=== PATIENT | female | born 1965 | race Caucasian/White ===

== ENCOUNTER 2024-09-03 05:48 | Observation (INO) ==
--- NOTE | 2024-08-23 10:42 | Anesthesiology Consultation ---
Date of Service August 23, 2024 Assessment & Plan (1) Encounter for pre-operative examination: - check BSG am DOS. - dulaglutide instructions: Patient informed by PAT RN to stop 7 days prior to surgery. - Per director global market research on 08/23/24: No known infectious disease contacts, current infectious disease symptoms in past 10 days or COVID positive test result in the past 30 days. Chart Review Chart Review: Acceptable Risk for Surgery and Patient NOT seen in Pre Admission Testing History Surgery Operation Date: 09/03/24 07:30 Proposed Procedures p Bilateral Breast Reduction - Kacie Gore MD Height/Weight Height: 5 ft Weight: 62.142 kg Allergies Allergy/AdvReac Type Severity Reaction Status Date / Time imipramine Allergy Mild HYPOTENSION, Verified 08/23/24 10:04 NAUSEA Sulfa (Sulfonamide Allergy Unknown HIVES Verified 08/23/24 10:04 Antibiotics) Medications Home Medications Medication Instructions Recorded Confirmed Last Taken empagliflozin 25 mg tablet 25 mg PO QPM 10/13/23 08/23/24 Unknown (Jardiance) glimepiride 4 mg tablet 4 mg PO QAM 10/13/23 08/23/24 Unknown olmesartan 20 mg tablet (Benicar) 20 mg PO DAILY 10/13/23 08/23/24 Unknown rosuvastatin 40 mg tablet (Crestor) 40 mg PO HS 10/13/23 08/23/24 Unknown vilazodone 40 mg tablet (Viibryd) 40 mg PO HS 10/13/23 08/23/24 Unknown dulaglutide 1.5 mg/0.5 mL 0.75 mg subcut Q7D 08/14/24 08/23/24 Unknown subcutaneous pen injector (Trulicity) lansoprazole 30 mg capsule,delayed 30 mg PO QAM 08/14/24 08/23/24 Unknown release (Prevacid) bupropion HCl 150 mg 24 hr tablet, 150 mg PO QPM 08/23/24 08/23/24 Unknown extended release bupropion HCl 300 mg 24 hr tablet, 300 mg PO QPM 08/23/24 08/23/24 Unknown extended release lamotrigine 100 mg tablet 50 - 200 mg PO UD mood swings 08/23/24 08/23/24 Unknown (Lamictal) Past Medical History Medical History (Updated 08/23/24 @ 10:39 by Adela Flower PA-C) Depression with anxiety Diabetes mellitus, type 2 History of hypertension Hx of gastroesophageal reflux (GERD) Hx of hyperlipidemia Hx of sleep apnea unable to tolerate device Nausea and vomiting after administration of anesthetic agent only in 1975 with jaw sx, nothing since Past Family History Family History Other COPD (chronic obstructive pulmonary disease) Diabetes Lymphoma Rheumatoid arthritis Past Surgical History Surgical History History of section 1999 History of esophagogastroduodenoscopy (EGD) History of mandibular surgery 1976 History of rotator cuff surgery 2016, left Hx of colonoscopy Social History Smoking Status: Never smoker Do You Dip or Chew Tobacco: No Hx Alcohol Use: No Hx Substance Use: No substance use type: does not use Lab Results Anesthesia Preop Results Results Anesthesia Widget: WBC 8.63 K/ul (4.8-10.8) 08/14/24 Hgb 11.9 g/dl (12.0-16.0) L 08/14/24 Hct 36.9 % (37.0-47.0) L 08/14/24 Plt 228 K/uL (130-400) 08/14/24 Na 137 mmol/L (136-145) 08/14/24 K 4.5 mmol/L (3.5-5.1) 08/14/24 Cl 104 mmol/L (98-107) 08/14/24 CO2 27 mmol/L (21-32) 08/14/24 BUN 12 mg/dl (6-23) 08/14/24 Creat 0.96 mg/dl (0.6-1.2) 08/14/24 Glucose Level 98 mg/dl (70-99(Fasting)) 08/14/24 PT 10.6 Seconds (9.0-12.0) 08/14/24 INR 1.0 (0.9-1.1) 08/14/24 HA1c 6.4 % (4.5-5.6) H 08/14/24 Testing Electrocardiogram Date: 08/14/24 NSR, rate 77 bpm Stress Test Date: 05/19/22 MPHR 85% Exercise echocardiographic is normal without resting LV wall motion abnormalities or inducible ischemia METS 6.4 EF 65-69% Mild aortic valve sclerosis is present without stenosis Grade I diastolic dysfunction
[2024-09-03] MEDS: LACTATED RINGER'S 1,000 ML IV SCH (06:24)
--- NOTE | 2024-09-03 06:51 | History & Physical Bridge Note ---
Date of Service September 03, 2024 History & Physical Bridge Note I have examined the patient, reviewed the History & Physical and in the interval since the performance of the History & Physical I have noted the following changes of clinical significance: no changes noted
[2024-09-03] MEDS: DEXTROSE 50% 50 ML SYRINGE IV ONE ×2 (07:05→12:35)
[2024-09-03] MEDS ORDERED: fentaNYL citrate PF 100 MCG/2 ML VIAL ONE (07:06)
[2024-09-03] MEDS ORDERED: MIDAZOLAM HCL 1 MG/ML 2ML VIAL ONE (07:06)
[2024-09-03] MEDS ORDERED: LIDOCAINE 2% 2 ML VIAL/AMP(20MG/ML) INFIL ONE (07:13)
[2024-09-03] MEDS ORDERED: ONDANSETRON INJ 2 MG/ML 2 ML VIAL ONE (07:13)
[2024-09-03] MEDS ORDERED: PROPOFOL IV EMULSION 10 MG/ML 20 ML VIAL IV ONE ×2 (07:13→09:15)
[2024-09-03] MEDS ORDERED: ROCURONIUM BROMIDE 10 MG/ML 5 ML VIAL IV ONE ×2 (07:17→08:53)
[2024-09-03] MEDS ORDERED: REMIFENTANIL HCL 1 MG VIAL IV ONE (07:24)
[2024-09-03] MEDS: ceFAZolin 2000MG 2,000 MG/15 ML SYR IV SCH ×2 (07:30→16:53)
[2024-09-03] MEDS ORDERED: PHENYLEPHRINE 100MCG/ML 5ML SYR ONE (07:41)
[2024-09-03] MEDS ORDERED: PHENYLEPHRINE HCL 10 MG/ML VIAL ONE (07:50)
[2024-09-03] MEDS ORDERED: ATROPINE SULFATE 0.1 MG/ML 10ML SYR IV PRN (07:52)
[2024-09-03] MEDS ORDERED: ePHEDrine sulfate 50 MG/ML AMP IV PRN (07:52)
[2024-09-03] MEDS ORDERED: DEXAMETHASONE SOD INJ 4 MG/ML VIAL IV PRN (07:52)
[2024-09-03] MEDS ORDERED: NALOXONE HCL 0.4 MG/1 ML VIAL/CARP IV PRN (07:52)
[2024-09-03] MEDS ORDERED: fentaNYL citrate PF 100 MCG/2 ML VIAL IV PRN (07:52)
[2024-09-03] MEDS ORDERED: LABETALOL HCL IV 5 MG/ML 20ML IV PRN (07:52)
[2024-09-03] MEDS ORDERED: ONDANSETRON INJ 2 MG/ML 2 ML VIAL IV PRN (07:52)
[2024-09-03] MEDS ORDERED: HYDROmorphone INJ 2 MG/ML SYR/VIAL IV PRN (07:52)
[2024-09-03] MEDS ORDERED: ePHEDrine sulfate 50 MG/5 ML SYR ONE (08:53)
[2024-09-03] MEDS: BUPIVACAINE 0.25% PF 30 ML VIAL ONE (10:23)
[2024-09-03] MEDS: LIDOCAINE 1%/EPINEPHRINE 1:100,000 50 ML VIAL ONE (10:23)
[2024-09-03] MEDS ORDERED: ceFAZolin 330 MG/ML 1 GM VIAL ONE (10:33)
[2024-09-03] MEDS ORDERED: diphenhydrAMINE 50 MG/ML VIAL ONE (10:37)
[2024-09-03] MEDS ORDERED: HYDROmorphone INJ 2 MG/ML SYR/VIAL ONE (10:42)
--- NOTE | 2024-09-03 10:47 | Post Operative Brief Note ---
PG Immediate Post Op with CF Date of Surgery September 03, 2024 Pre & Post Diagnosis Operation Date: 09/03/24 07:30 Pre-Op Diagnosis: Symptomatic Macromastia Post-Op Diagnosis: Symptomatic Macromastia I identified the patient and participated in the time-out.: Yes Procedure Operation Date: 09/03/24 07:30 Actual Procedures p Bilateral Breast Reduction(Bilateral) - Kacie Gore MD Surgeon Kacie Gore MD Binder Cutter Hand Marifer العلي MD PGY-4 Estimated Blood Loss 25 Findings Consistent with Post-Op Diagnosis Specimens Specimen Description: A. Left Breast- 846 grams B. Right Breast- 852 grams Drains Gabe-Duque Drain (b/l breasts)
[2024-09-03] MEDS ORDERED: GLYCOPYRROLATE 0.2 MG/ML VIAL ONE (10:49)
[2024-09-03] MEDS ORDERED: NEOSTIGMINE METHYLSULFATE 1 MG/ML 10ML VIAL ONE (10:49)
[2024-09-03] MEDS ORDERED: PHARMACY GLYCEMIC MGMT CONSULT PRN (11:26)
[2024-09-03] MEDS ORDERED: CARBOHYDRATES FOR HYPOGLYCEMIA PO PRN (12:00)
[2024-09-03] MEDS ORDERED: DEXTROSE 50% 50 ML SYRINGE IV PRN (12:00)
[2024-09-03] MEDS ORDERED: GLUCOSE 40% GEL 15 GM TUBE PO PRN (12:00)
[2024-09-03] MEDS ORDERED: GLUCAGON FOR INJ 1 MG VIAL SQ PRN (12:00)
[2024-09-03] MEDS ORDERED: GLUCOSE 10 TAB/TUBE PO PRN (12:00)
--- NOTE | 2024-09-03 12:06 | Anesthesiology Progress Note ---
Date of Service September 03, 2024 Anesthesia Post Procedure Vital Signs Vital Signs: Temp Pulse Resp BP BP Pulse Ox O2 Del Method 09/03/24 12:00 36.4 C L 91 H 15 148/77 H 98 Room Air 09/03/24 11:50 92 H 16 119/82 99 Room Air 09/03/24 11:40 94 H 14 133/78 100 Oxymask 09/03/24 11:30 96 H 18 144/104 H 100 Oxymask 09/03/24 11:20 98 H 12 165/89 H 100 Oxymask 09/03/24 11:17 36.3 C L 98 H 16 148/88 H 100 Oxymask 09/03/24 06:12 36.8 C 92 H 20 127/88 96 Room Air O2 Flow Rate 09/03/24 12:00 09/03/24 11:50 09/03/24 11:40 3 09/03/24 11:30 6 09/03/24 11:20 6 09/03/24 11:17 6 09/03/24 06:12 Transfer of Care Handoff Completed per policy Notes Mental Status: alert / awake / arousable and participated in evaluation Patient Amnestic to Procedure: Yes Nausea / Vomiting: adequately controlled Pain: adequately controlled Airway Patency, RR, SpO2: stable & adequate BP & HR: stable & adequate Hydration State: stable & adequate Anesthetic Complications: no major complications apparent and Pt Satisfied with anesthetic care
[2024-09-03] MEDS ORDERED: diphenhydrAMINE 50 MG/ML VIAL IV PRN (12:31)
[2024-09-03] MEDS ORDERED: diphenhydrAMINE Capsule 25 MG CAP PO PRN (12:31)
[2024-09-03] MEDS ORDERED: oxyCODONE/ACETAMINOPHEN 5mg/325mg TAB PO PRN ×2 (12:31)
[2024-09-03] MEDS ORDERED: PROMETHAZINE 12.5 MG/50.5 ML BAG IV PRN (12:31)
[2024-09-03] MEDS: INSULIN ASPART PER UNIT CHARGE SC SCH (13:03)
--- NOTE | 2024-09-03 13:17 | Pharmacy Report ---
Pharmacy Glycemic Short Note 2 - Date of Service September 03, 2024 - Glycemic Short BSG Results (Last 24 hours): 09/03/24 09/03/24 09/03/24 06:10 07:21 08:25 POC Glucose 86 179 H 113 H 09/03/24 09/03/24 09/03/24 09:25 10:25 11:19 POC Glucose 114 H 143 H 108 H 09/03/24 12:34 POC Glucose 89 OUTPATIENT ANTIDIABETIC REGIMEN: * Empagliflozin 25 mg PO daily * Glimepiride 4 mg PO qAM * Dulaglutide 0.75 mg SC weekly HbA1c: 6.4% (08/14/24) ASSESSMENT: * Shelly is a 59 year old female POD #0 s/p bilateral breast reduction * Blood sugars have been well-controlled perioperatively * No steroids administered during surgery or ordered postoperatively * D5-1/2 NSS @75 ml/hr infusing at this time PLAN FOR INPATIENT GLYCEMIC CONTROL: * Hold outpatient oral diabetes medications * Basal insulin * hold * Bolus insulin * NovoLog per scale ACHS or Q6hrs while NPO * Goal Range: Low 110 mg/dL - High 140 mg/dL * Correction Factor: 40 mg/dL/unit * Nutritional / Prandial insulin per carb ratio of 1 unit per 13 grams CHO consumed
[2024-09-03] MEDS: D5W AND 1/2NSS + 20MEQ KCL 20 MEQ/1,000 ML BAG IV SCH (13:51)
--- NOTE | 2024-09-03 14:52 | Operative Report ---
PG Post Operative Report Pre & Post Diagnosis Operation Date: 09/03/24 07:30 Pre-Op Diagnosis: Symptomatic Macromastia Post-Op Diagnosis: Symptomatic Macromastia I identified the patient and participated in the time-out.: Yes Procedure Operation Date: 09/03/24 07:30 Actual Procedures p Bilateral Breast Reduction(Bilateral) - Kacie Gore MD Surgeon Kacie Gore MD Auto Damage Adjuster Marifer العلي MD PGY-4 Estimated Blood Loss 25 Findings Consistent with Post-Op Diagnosis Specimens left breast 846 grams, right breast 852 grams Drains JPx2 Anesthesia Type General Complications none Indications back, neck and bilateral shoulder pain secondary to macromastia Description of Procedure The risks, benefits, and alternatives of the procedure were explained to the patient who agreed and signed consent. She was identified and marked in the preoperative holding area. She was brought to the operating room where she was positioned supine and placed under general anesthesia without incident. Surgical site was prepped and draped sterilely. A time-out procedure was performed. I began with the left side. Markings were reassessed and an 8 cm pedicle was marked. 1% lidocaine with epinephrine was used to anesthetize the planned incisions. A 42 mm cookie cutter was used to circumscribe the nipple-areolar complex. The previously marked 8 cm pedicle was incised using a 15 blade scalpel and deepithelialized. I began with the medial dissection of the pedicle using electrocautery. Cautery was used to incise through dermis and breast parenchyma down to the chest wall, taking care not to undermine the pedicle during dissection. A similar procedure was undertaken on the lateral aspect of the pedicle again taking care not to undermine. Lastly, the pedicle was dissected out superiorly using electrocautery and this was carried down to the chest wall as well. I then began with excision of the medial breast tissue followed by lateral aspect of the breast tissue and surrounding keyhole incision. A 15 blade scalpel was used to make the inframammary fold incision and electrocautery was used to deepen the incision through dermis and breast parenchyma. Dissection was then carried superiorly to the level of the superior incision. Superior incision was then incised using a 15 blade scalpel and again dissected using electrocautery. This was undertaken laterally and then around the keyhole portion of the incision. Care was taken to leave some fat on the lateral pectoralis fascia in order to protect the T4 intercostal nerve. Hemostasis was achieved with electrocautery. The specimen was passed off in its entirety for weighing. Additional resection was undertaken from the superior flap in order to facilitate closure of the breast and to provide the best shape. The total resection weight of the left breast was 846 grams. The wound was irrigated with saline and hemostasis was achieved with electrocautery. 0.25% Marcaine plain was used to anesthetize the incisions as well as the pectoralis fascia. A 15 [place] Mahendra drain was brought out through a separate stab incision. The nipple-areolar complex was brought into the keyhole using 2-0 Vicryl deep dermal suture. The wound was closed first in a lateral to mid breast direction and then medial to mid breast direction using 2-0 Vicryl deep dermal sutures. Vertical limb was also approximated using 2-0 Vicryl deep dermals and the nipple-areolar complex was inset using 2-0 Vicryl deep dermal sutures. Next, the superficial dermal layer was closed using 2-0 PDO running Quill suture along the inframammary fold and 3-0 PDS interrupted dermal sutures along the vertical limb and nipple- areolar complex. Lastly 3-0 Monocryl running subcuticular suture was placed. A similar procedure was undertaken on the right side with maximal excision weight of 852 grams. Breasts were symmetric and nipple-areolar complexes were viable bilaterally following wound closure. Sylke was applied along the inframammary fold, vertical limb and the nipple-areolar complex. Dry dressings and a surgical bra were placed. The patient was awakened and transferred to recovery room in satisfactory condition. Marifer لاعلي MD PGY-4 and Izzy Ashton PA-C were present and scrubbed throughout the procedure and were instrumental in providing retraction during dissection of the pedicle and assisting in wound closure. I attest to the content of the Intraoperative Record and any orders documented therein. Any exceptions are noted below.
[2024-09-03] MEDS: ENOXAPARIN INJ 30 MG/0.3 ML SYR SQ SCH (16:52)
[2024-09-03] MEDS: ONDANSETRON INJ 2 MG/ML 2 ML VIAL IV PRN (16:59)
[2024-09-03] MEDS: buPROPion XL 300 MG TABCR PO SCH (20:49)
[2024-09-03] MEDS: buPROPion XL 150 MG TABCR PO SCH (20:49)
[2024-09-03] MEDS: lamoTRIgine 100 MG TAB PO SCH (20:49)
[2024-09-03] MEDS: ROSUVASTATIN CALCIUM 20 MG TAB PO SCH (20:49)
[2024-09-03] MEDS: ACETAMINOPHEN 325 MG TAB PO PRN (21:41)
--- NOTE | 2024-09-04 07:44 | Surgery Progress Note ---
Date of Service September 04, 2024 Assessment & Plan (1) S/P bilateral breast reduction: Plan: Drains removed today. D/C home, with office follow-up tomorrow. Admission and Anticipated Discharge Date Admission Date: September 03, 2024 Toshia Bravo is resting comfortably in bed. She is tolerating regular diet and ambulating. Physical Exam Physical Exam: NAC pink and viable, drains with scant output- removed Results & Data Vital Signs (Past 12 Hours) Vital Signs Temp Pulse Resp BP Pulse Ox O2 Del Method 09/04/24 07:21 37.7 C H 97 H 16 97/61 L 96 Room Air 09/04/24 04:13 37.0 C 89 16 100/59 L 95 Room Air 09/04/24 03:00 36.9 C 97 H 16 93/56 L 98 Room Air 09/03/24 23:00 37 C 102 H 16 117/68 97 Room Air PG Care Time/CCT Total # of Minutes Spent Total Time Spent with Patient: Total time spent is greater than 50% in coordination of care (as documented) at patient's floor/unit and/or counseling patient: Coding Level of Care Code 56262 Post Operative Follow-Up Diagnoses S/P bilateral breast reduction Z98.890
[2024-09-04] MEDS: LOSARTAN POTASSIUM 50 MG TAB PO SCH (08:25)
[2024-09-04] MEDS: lamoTRIgine 25 MG TAB PO SCH (08:25)
[2024-09-04] MEDS: MULTIVITAMIN TAB PO SCH (08:26)
[2024-09-04] MEDS: PANTOprazole 40 MG TAB PO SCH (08:26)
[2024-09-04] MEDS ORDERED: lamoTRIgine 100 MG TAB PO SCH (09:00)
[2024-09-04] MEDS ORDERED: GLIMEPIRIDE 2 MG TAB PO SCH (09:00)
--- NOTE | 2024-09-20 10:35 | Coding Query ---
A supporting diagnosis is required for the test/procedure performed on this patient in order for us to be reimbursed by the patient's insurance. Please provide a supporting diagnosis for the following test/procedure listed below next to the test name. *If there is no additional diagnosis for this patient that would support the following test/procedure please document that below next to the test/procedure. Test(s)/Procedure(s) that require a supporting diagnosis: * [address], Breast reduction DIAGNOSIS: Macromastia, dorsalgia Thank you Ilda Castillo [employer] Once completed, please kindly fax back to [phone] For questions please call [phone] [facility]
== END 2024-09-04 10:47 | disposition home or self-care (01) ==
LOC: 3E 05:48 → ASU 05:48